=== PATIENT | male | born 1990 | race Two or more races ===

== ENCOUNTER 2021-01-27 08:09 | Emergency (ER) | payer SELFPAY ==
[~2021-01-27] VITALS: Ht 162.6 cm; Wt 85.7 kg
[2021-01-27 08:11] VITALS: BP 143/90
[2021-01-27] MEDS ORDERED: methylPREDNISolone SOD SUCC 125 MG/2 ML VL IM ONE (08:30)
[2021-01-27] MEDS ORDERED: cefTRIAXone SOD 1,000 MG VL IM ONE (08:30)
[2021-01-27] MEDS ORDERED: ACETAMINOPHEN 500 MG TAB PO ONE ×2 (08:51→09:00)
== END 2021-01-27 09:14 | disposition home or self-care (01) ==
LOC: ER 08:09
DX: J03.00 Acute streptococcal tonsillitis, unspecified (principal); F17.210 Nicotine dependence, cigarettes, uncomplicated; Z20.822 Contact with and (suspected) exposure to COVID-19
CPT/HCPCS: 36415; 71045; 87426; 87880; 96372; 99284; J0696; J2930

== ENCOUNTER 2021-03-14 14:05 | Emergency (ER) | payer MEDICAID, OTHER ==
[~2021-03-14] VITALS: Ht 162.6 cm; Wt 88.9 kg
[2021-03-14 14:10] VITALS: BP 127/93
== END 2021-03-14 17:03 | disposition home or self-care (01) ==
LOC: ER 14:05
DX: S00.36XA Insect bite (nonvenomous) of nose, initial encounter (principal); S00.86XA Insect bite (nonvenomous) of other part of head, initial encounter; W57.XXXA Bitten or stung by nonvenomous insect and other nonvenomous arthropods, initial encounter; Y93.89 Activity, other specified; Y92.89 Other specified places as the place of occurrence of the external cause; Y99.8 Other external cause status

== ENCOUNTER 2021-09-14 13:14 | Emergency (ER) | payer MEDICAID ==
[~2021-09-14] VITALS: Ht 162.6 cm; Wt 88.9 kg
[2021-09-14 15:52] VITALS: BP 157/93
[2021-09-14] MEDS ORDERED: IBUP800T27 PO (16:44)
== END 2021-09-14 16:45 | disposition home or self-care (01) ==
LOC: ER 13:14
DX: S82.492A Other fracture of shaft of left fibula, initial encounter for closed fracture (principal); S82.255A Nondisplaced comminuted fracture of shaft of left tibia, initial encounter for closed fracture; F17.210 Nicotine dependence, cigarettes, uncomplicated; F12.10 Cannabis abuse, uncomplicated; F15.10 Other stimulant abuse, uncomplicated; V09.9XXA Pedestrian injured in unspecified transport accident, initial encounter; Y93.89 Activity, other specified; Y92.89 Other specified places as the place of occurrence of the external cause; Y99.8 Other external cause status
CPT/HCPCS: 29515; 73610